=== PATIENT | female | born 1945 | race Caucasian/White ===

== ENCOUNTER → 2023-04-01 | Outpatient (CLI) | payer MEDICARE, OTHER, SELFPAY ==
--- NOTE | 2023-04-01 09:30 | CYSPIN_PTH ---
PATHOLOGY RESULTS PATIENT: KIRSTIN ONTIVEROS [facility] U#:[id number] AGE/SX: 77/F ROOM: RE04/01/[address]: Dr. Araceli Varner MD : 1945 BED: DIS: 04/01/2023 SPEC #: [id number] RECD: 04/02/23 07:32 STATUS: JUAN WHITE #: [id number] BRENDA: 04/01/23 09:[address]: Araceli Varner DEPT: CYTOLOGY RECD BY: Yara Leone ENTERED: 04/02/23 07:32 SP TYPE: CYSPIN FL Tissues: Urine Procedures: Pap Stain (control) Special Stain Group II Cytospin Fluid HEADER OPERATION: Not noted PRE-OP DIAGNOSIS: Gross hematuria TISSUE SUBMITTED: Urine for cytology DIAGNOSIS CYTOLOGY Urine for cytology (cytospin): Negative for high-grade urothelial carcinoma (NHGUC), Michelle System Category II. See comment. AM:augustine 04/02/2023 COMMENT The Michelle System for urine cytology diagnostic categorization was used in the evaluation of this case. The specimen primarily consists of squamous epithelial cells and abundant bacterial colonies. Clinical correlation is suggested. CYTOLOGY STUDY Slides are reviewed. CYTOLOGY GROSS Received is 20 ml of dark yellow cloudy fluid labeled with the patient's name and and designated per the requisition as urine. Submitted for cytology preparation. / augustine 04/01/2023 TC:5 CPT: 26692
[2023-04-01 18:23] LABS: Cytology, Body Fluid / CSF SEE PATHOLOGY REPORT
== END | disposition home or self-care (01) ==
PROVIDERS: Visit Provider Urology
DX: R31.0 Gross hematuria (principal)
CPT/HCPCS: 88108; 88313